=== PATIENT | male | born 1940 | race Hispanic/Latino ===

== ENCOUNTER → 2022-03-18 | Outpatient (CLI) | payer OTHER | END | disposition home or self-care (01) | LOC: RAH 09:47 | PROVIDERS: ATTEND Family Medicine | DX: M19.022 Primary osteoarthritis, left elbow (principal); M25.522 Pain in left elbow | CPT/HCPCS: 73080 ==

== ENCOUNTER 2025-01-19 17:56 | Observation (INO) | payer OTHER ==
[~2025-01-19] VITALS: Ht 172.7 cm; Wt 77.1 kg
[~2025-01-19 17:56] MED LIST: ATOR10TA69 PO; FOLI0.8T3 PO; FURO40TA5 PO; GABA300C PO; LOSA50TA64 PO; PRED20B PO; TAMS-55 PO
[2025-01-19] MEDS: FAMOTIDINE 20MG VIAL IV ONE (18:27)
[2025-01-19] MEDS: 0.9%NACL 1000ML 1,000 ML IV ONE (18:27)
[2025-01-19 18:44] LABS: IMMATURE GRANULOCYTE ABSOLUTE 0.04 K/uL (0-1); NUCLEATED RED BLOOD CELLS 0.0 % (0.0-0.19); PLATELET COUNT (AUTO) 179 K/uL (130-400); RED BLOOD CELL COUNT(AUTO) 4.61 MIL/uL (4.50-6.20); RED CELL DISTRIBUTION WIDTH 13.1 % (11.0-15.5); WHITE BLOOD COUNT (AUTO) 7.1 K/uL (4.8-10.8)
[2025-01-19 18:46] LABS: CREATININE 1.6 mg/dL (0.5-1.3); GLOMERULAR FILTR. RATE CALC 43.0 mL/min (>90); GLUCOSE,RANDOM 174.0 mg/dL (70-105); SODIUM SERUM 138.0 mmol/L (136-145); UREA NITROGEN, BLOOD 26.0 mg/dL (7-18)
[2025-01-19 18:51] LABS: CREATINE KINASE, TOTAL 321.0 U/L (21-232)
--- NOTE | 2025-01-19 19:57 | HMCIMG ---
EXAM: CR Chest, 1 View. CLINICAL HISTORY: sob/cough COMPARISON: None provided. FINDINGS: LUNGS: The lungs show no infiltrate or other acute finding. PLEURAL SPACES: No evidence of pleural effusion or pneumothorax. MEDIASTINUM: Cardiac size and mediastinal contours within normal limits. BONES: No acute osseous abnormality. IMPRESSION: No acute cardiopulmonary pathology is evident. /[place]
--- NOTE | 2025-01-19 20:19 | HP ---
[facility] HISTORY & PHYSICAL Date Patient Seen: Jan 19, 2025 Time of Visit: 2144 Supervising Physician: [Dr. Zay Hicks] Primary Care Physician: [Dr. April Anderson] Outpatient Specialists: [Dr. Contreras ] Inpatient Consults: [ ] PROBLEM LIST: Bee-sting injury-POA ANDRY -POA Elevated CK, mild-POA Respiratory distress, resolved-POA Suspected anaphylaxis reaction post-bee sting [id number] Mild hypokalemia-POA Elevated CK-POA Primary hypertension HLD Prior history of stroke History of unnamed rare kidney disease : Follows up with Dr. Contreras in the outpatient (per daughter's report) HX of glomerulonephritis HX of prior dialysis Plan -admit to PCCU -continue to monitor cardiopulmonary status to rule out anaphylaxis -monitor for shock event -continue IV methylprednisolone and Pepcid -aggressive IV fluids to maintain volume and minimize occurrence of shock -avoid nephrotoxic agents -supportive care -continue to monitor renal function and electrolytes, manage accordingly -multimodal pain management -Monitor CK HPI: [Patient is 84-year-old male with PMH significant for HTN, HLD, prior CVA and a rare kidney disease who was presented to the ED concerning respiratory distress secondary to bee sting injury. Patient is currently sleeping and weak due to the unfortunate event, he was unable to engage with the HPI process so the daughter at bedside gave residual history. 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 He was inside his tractor and was moving some logs when he did not notice the beehive that aggravated the bees that ended up attacking him. He started having swelling in his face, severe cough, having raspy voice and fear of closing his throat. He was immediately brought to [facility] [place] and was given stat epinephrine, methylprednisolone, Benadryl and famotidine. Patient recovered afterwards and was not complaining of any symptoms. At the time of my assessment, patient is resting comfortably, response to voice, denies pain or discomfort or dyspnea, and hemodynamically stable. His facial edema has significantly improved with mild redness. We will continue to monitor patient's condition and will admit the patient to PCCU for close monitoring. Goals of care were discussed with the patient's daughter verbalizes understanding and agreement. PAST MEDICAL HX: see above PAST SURGICAL HX: noncontributory SOCIAL HISTORY: No tobacco, ETOH, or illicit drug use Coded Allergies: No Known Drug Allergies (Unverified Allergy, Unknown, 04/16/22) REVIEW OF SYSTEMS: 12 point ROS reviewed with patient. Pertinent positives mentioned above. Otherwise negative. PHYSICAL EXAM: GENERAL: alert, weak, awake oriented x 3 HEENT: EOMI, Sclera non icteric, dry mucosa, facial redness with very minimal swelling NECK: Supple, no JVD, trachea midline LUNGS: Clear breath sounds bilaterally. No wheezes HEART: Regular rate and rhythm. Normal S1 and S2, without murmurs ABD: Abdomen soft, nontender. Bowel sounds present EXT: No clubbing cyanosis or edema NEURO: Alert and oriented to person, follows commands Vital Signs (last 8hr) Date Time Temp Pulse Resp B/P (MAP) Pulse Ox O2 Delivery O2 Flow Rate FiO2 01/19/25 19:18 99.0 92 24 140/74 97 Room Air* 0 21 01/19/25 19:00 99.0 87 26 129/73 95 Room Air* 0 21 01/19/25 17:58 98.2 110 20 110/66 99 Room Air 0 LABS: Hematology Labs: Test 01/19/25 18:22 Range/Units White Blood Count 7.1 4.8-10.8 K/uL Red Blood Count 4.61 4.50-6.20 MIL/uL Hemoglobin 15.1 14.0-18.0 g/dL Hematocrit 44.3 42-54 % Mean Corpuscular Volume 96.1 79-99 fL Mean Corpuscular Hemoglobin 32.8 27.0-33.0 pg Mean Corpuscular Hemoglobin Concent 34.1 32.0-36.0 g/dL Red Cell Distribution Width 13.1 11.0-15.5 % Platelet Count 179 130-400 K/uL Mean Platelet Volume 9.8 7.5-10.5 fL Immature Granulocyte % (Auto) 0.6 0-1 % Neutrophils (%) (Auto) 85.3 H 40.0-77.0 % Lymphocytes (%) (Auto) 10.2 L 21.0-51.0 % Monocytes (%) (Auto) 3.5 3.0-13.0 % Eosinophils (%) (Auto) 0.4 0.0-8.0 % Basophils (%) (Auto) 0.0 0.0-5.0 % Neutrophils # (Auto) 6.1 1.8-7.7 K/uL Lymphocytes # (Auto) 0.7 L 1.0-4.8 K/uL Monocytes # (Auto) 0.3 0.1-1.0 K/uL Eosinophils # (Auto) 0.03 0.00-0.70 K/uL Basophils # (Auto) 0.00 0.00-0.20 K/uL Absolute Immature Granulocyte (auto 0.04 0-1 K/uL Nucleated Red Blood Cells 0.0 0.0-0.19 % Chemistry Labs: Test 01/19/25 18:22 Range/Units Sodium Level 138 136-145 mmol/L Potassium Level 3.3 L 3.5-5.1 mmol/L Chloride Level 100 L 101-111 mmol/L Carbon Dioxide Level 26 21-32 mmol/L Blood Urea Nitrogen 26 H 7-18 mg/dL Creatinine 1.6 H 0.5-1.3 mg/dL Glomerular Filtration Rate Calc 43 >90 mL/min Random Glucose 174 H 70-105 mg/dL Total Calcium 9.3 8.5-10.1 mg/dL Total Creatine Kinase 321 H 21-232 U/L Troponin I High Sensitivity 8 4-75 ng/L DIAGNOSTICS / RADIOLOGY RESULTS: [ ] PLAN NEURO: Minimize central acting medications as possible. Maintain fall precautions, adequate lighting during the day PULMONARY: Supplemental 02 as needed. Maintain aspiration precautions at all times CARDIOVASCULAR: Follow hemodynamics. Vital signs per facility protocol GI & NUTRITION: Continue with nutritional support. Continue stool softeners and laxatives as needed. KIDNEYS & ELECTROLYTES: Strict monitoring of intake, output and overall fluid balance. Avoid nephrotoxic medications to the extent possible. Medications to be dosed according to renal function. Monitor electrolytes and replace as needed ENDOCRINE: Maintain blood glucose between 100-180 at all times. Hypoglycemia protocol in place INFECTIOUS DISEASE: Trend temperature, WBC and procalcitonin level Follow cultures, deescalate antibiotics as soon as possible. Panculture if new onset fever ONCOLOGY/HEMATOLOGY/COAGULATION: Monitor for s/s of bleeding Monitor hemoglobin, coagulation studies as needed SKIN: Pressure ulcer prevention per facility protocol Specialty mattress ORTHO/REHAB: Continue PT/OT Prophylaxis: Continue GI and DVT prophylaxis Code Status: Full Resuscitation Disposition: Home NATALEE BELTRE TRELL Jan 19, 2025 20:19
[2025-01-19] MEDS ORDERED: MAGNESIUM 2GM PREMIX 50ML 50 ML IV PRN (20:30)
[2025-01-19] MEDS ORDERED: PoTASSium chl 10% ELIXIR 20MEQ 20 MEQ/15 ML UDCUP PO PRN (20:30)
[2025-01-19] MEDS ORDERED: PoTASSium chloRIDE 20MEQ ER 20 MEQ ERTAB PO PRN (20:30)
[2025-01-19] MEDS ORDERED: ALBUTEROL 0.083% 2.5 MG/3 ML INH IH PRN (20:30)
[2025-01-19] MEDS ORDERED: LACTULOSE 20 GM/30 ML UDCUP PO PRN (20:30)
--- NOTE | 2025-01-19 20:42 | ERN ---
General Chief Complaint: Allergic Reaction Stated Complaint: MULTIPLE WASP STINGS Time Seen by MD: 17:59 Time Seen by Midlevel: 17:59 Source: patient History of Present Illness Initial Comments The patient is an 84-year-old male presenting to the emergency department for evaluation of multiple bee stings. The patient was stung by over 50 bees approximately hours prior to arrival. On arrival the patient is specifically denies any chest pain or shortness for breath Allergies: Coded Allergies: No Known Drug Allergies (Unverified Allergy, Unknown, 04/16/22) Home Meds Active Scripts Prednisone (Deltasone/Orasone [Bulk]) 20 Mg Tab, 20 MG PO TID, #90 TAB 3 Refills Prov:MICHELLE PADILLA MD 04/25/22 Reported Medications Furosemide (Furosemide) 40 Mg Tablet, 40 MG PO BID, TAB 04/16/22 Tamsulosin HCl (Flomax) 0.4 Mg Cap.er.24h, 0.4 MG PO DAILY, CAPSULE.DR 04/16/22 Gabapentin (Neurontin) 300 Mg Capsule, 300 MG PO BID, CAP 04/16/22 Atorvastatin Calcium (Atorvastatin Calcium) 10 Mg Tablet, 10 MG PO DAILY, TAB 04/16/22 Folic Acid (Folic Acid) 0.8 Mg Tablet, 1 MG PO DAILY, TAB 04/16/22 Losartan Potassium (Losartan Potassium) 50 Mg Tablet, 50 MG PO DAILY, TAB 04/16/22 Past Medical History Past Medical History: High Cholesterol, Heart Disease, Hypertension, Renal Disese Past Surgical History: Cholecystectomy, Other Social History Social History: Negative, Lives with family ROS Dictation CONSTITUTIONAL: Negative except for HPI HEAD/FACE: Negative except for HPI EENT: Negative except for HPI RESPIRATORY: Negative except for HPI GASTROINTESTINAL/ABDOMINAL: Negative except for HPI GENITOURINARY: Negative except for HPI MUSCULOSKELETAL: Negative except for HPI INTEGUMENTARY: Negative except for HPI NEUROLOGICAL/PSYCH: Negative except for HPI HEMATOLOGIC/LYMPHATIC: Negative except for HPI All Systems Negative, Except as noted above. 13 point review of systems assessed and all negative except for above. Physical Exam Physical Exam Dictation Vital Signs reviewed General Appearance: Alert, oriented x 3, no acute distress, well developed, nourished. Head and Face: non-traumatic. Eyes: PERRL, pink conjunctivas, eyelid no trauma, anterior chamber with arcus senilis. Ears: Pinnas intact and no signs of trauma or erythema ear canals clear and no discharge TM no erythema Nose: No discharge, no bleeding. Oropharynx: Mouth normal, tongue pink, pharynx clear,no erythema, tonsils no exudates, no abscesses noted, mucous membrane moist Neck: Supple, non-tender, no thyromegaly, no masses, no JVD, no bruits Breast:Deferred Chest:No tenderness, no crepitus, no paradoxical movement, no retractions Lungs:Clear, well-ventilated, symmetric, no rales, no wheezing, no rhonchi, no stridor, good breath sounds bilaterally Heart: Regular rate, regular rhythm, no murmur, no gallops Vascular: no peripheral edema, Abdomen: Soft, positive bowel sounds, nondistended, no guarding, nontender, no rebound, no masses no hepatomegaly, no splenomegaly, no Hussein's sign, no hernias. Rectal: Deferred Genital: Deferred Neurological: Normal speech, motor function intact, sensory function intact Musculoskeletal: Neck nontender, full range of motion, back nontender, full range of motion, Extremities: nontender, full range of motion Skin: Color pink, dry, no turgor, no rash, no lacerations, no abrasions, no contusions. Lymphatic: Deferred Results Laboratory and Microbiology Lab and Micro Result Laboratory Tests Test 01/19/25 18:22 White Blood Count 7.1 K/uL (4.8-10.8) Red Blood Count 4.61 MIL/uL (4.50-6.20) Hemoglobin 15.1 g/dL (14.0-18.0) Hematocrit 44.3 % (42-54) Mean Corpuscular Volume 96.1 fL (79-99) Mean Corpuscular Hemoglobin 32.8 pg (27.0-33.0) Mean Corpuscular Hemoglobin Concent 34.1 g/dL (32.0-36.0) Red Cell Distribution Width 13.1 % (11.0-15.5) Platelet Count 179 K/uL (130-400) Mean Platelet Volume 9.8 fL (7.5-10.5) Immature Granulocyte % (Auto) 0.6 % (0-1) Neutrophils (%) (Auto) 85.3 % (40.0-77.0) H Lymphocytes (%) (Auto) 10.2 % (21.0-51.0) L Monocytes (%) (Auto) 3.5 % (3.0-13.0) Eosinophils (%) (Auto) 0.4 % (0.0-8.0) Basophils (%) (Auto) 0.0 % (0.0-5.0) Neutrophils # (Auto) 6.1 K/uL (1.8-7.7) Lymphocytes # (Auto) 0.7 K/uL (1.0-4.8) L Monocytes # (Auto) 0.3 K/uL (0.1-1.0) Eosinophils # (Auto) 0.03 K/uL (0.00-0.70) Basophils # (Auto) 0.00 K/uL (0.00-0.20) Absolute Immature Granulocyte (auto 0.04 K/uL (0-1) Nucleated Red Blood Cells 0.0 % (0.0-0.19) Sodium Level 138 mmol/L (136-145) Potassium Level 3.3 mmol/L (3.5-5.1) L Chloride Level 100 mmol/L (101-111) L Carbon Dioxide Level 26 mmol/L (21-32) Blood Urea Nitrogen 26 mg/dL (7-18) H Creatinine 1.6 mg/dL (0.5-1.3) H Glomerular Filtration Rate Calc 43 mL/min (>90) Random Glucose 174 mg/dL (70-105) H Total Calcium 9.3 mg/dL (8.5-10.1) Total Creatine Kinase 321 U/L (21-232) H Troponin I High Sensitivity 8 ng/L (4-75) Labs Reviewed?: Yes MDM MDM: Differential diagnosis: Acute allergic reaction, anaphylaxis, acute coronary syndrome Rationale: Tests considered and ordered secondary to shared decision making include: Previous outside records reviewed: Old ER visits. Risk of complication and/or morbidity or mortality of patient management: None Medications-Per medication reconciliation Need for hospitalization: Patient does meet criteria for hospitalization. Need for emergency major/minor surgery: No There are no social concerns with this patient. Prescription drug management Prescriptions will include symptomatic care Patient's prior external medical records from other ER visits were reviewed by me as indicated. Prior testing and results from previous visits were reviewed. Prior tests were taken into account with medical decision making and resource utilization, independent historian/historians were used to obtain complete medical history. I independently interpreted the test that were performed, results were reviewed by me and considered findings on radiology if ordered. Medical management and examination interpretation discussions were had by me with other qualified healthcare professionals as indicated for the patient's care. ED Course Orders Procedure Category Date Status Time 12 Lead Ekg Tracing- EKG 01/19/25 Logged Technical 18:02 Cbc With Differential LAB 01/19/25 Complete 18:02 Basic Metabolic Panel LAB 01/19/25 Complete 18:02 Troponin I High LAB 01/19/25 Complete Sensitivity 18:02 Creatine Kinase, Total LAB 01/19/25 Complete 18:02 0.9%Nacl 1000ml (Ns PHA 01/19/25 Complete 1000ml) 18:30 Methylprednisolone PHA 01/19/25 Complete Succ 125mg (Solu-Medr 18:30 Diphenhydramine Hcl PHA 01/19/25 Complete (Benadryl Inj) 18:30 Famotidine 20mg Vial PHA 01/19/25 Complete (Pepcid 20mg Vial) 18:30 Epinephrine Pf 1mg PHA 01/19/25 Complete (1:1,000) (Adrenaline 19:24 Chest 1vw RAD 01/19/25 Resulted 19:28 Epinephrine Pf 1mg PHA 01/19/25 Complete (1:1,000) (Adrenaline 19:30 Vital Signs Every 4 CPOE 01/19/25 Transmitted Hours 20:11 Daily Weights CPOE 01/19/25 Transmitted 20:11 I&O Q Shift CPOE 01/19/25 Transmitted 20:11 Activity: Bed Rest CPOE 01/19/25 Transmitted 20:11 Heart Healthy Diet DIET 01/20/25 Transmitted Breakfast O2 Order RT 01/19/25 Transmitted 20:11 Albuterol 0.083% PHA 01/19/25 In Process 2.5mg/3ml (Proventil 20:30 Cbc With Differential LAB 01/20/25 Verified 04:00 Basic Metabolic Panel LAB 01/20/25 Verified 04:00 Magnesium LAB 01/20/25 Verified 04:00 Phosphorus LAB 01/20/25 Verified 04:00 Cardiac Panel LAB 01/19/25 Logged 22:00 Cardiac Panel LAB 01/20/25 Verified 04:00 Cardiac Panel LAB 01/20/25 Verified 10:00 Thyroid Stimulating LAB 01/20/25 Verified Hormone 04:00 Lipid Panel LAB 01/20/25 Verified 04:00 Lactated Ringers PHA 01/19/25 In Process 1000ml (Lactated 20:30 Polyethylene Glycol PHA 01/20/25 In Process 3350 (Miralax 3350 1 09:00 Pantoprazole 40mg Tab PHA 01/20/25 In Process (Protonix 40mg Tab 09:00 Acetaminophen 325 Tab PHA 01/19/25 In Process (Tylenol 325mg Tab 20:30 Lactulose 20 Gm/30 Ml PHA 01/19/25 In Process Udcup (Constulose 20:30 Ondansetron 4mg Inj PHA 01/19/25 In Process (Zofran 4mg Inj) 20:30 Clonidine Hcl 0.1 Mg PHA 01/19/25 In Process Tablet (Catapres 0. 20:30 Hydralazine 20mg Inj PHA 01/19/25 Complete (Apresoline 20mg In 20:30 Labetalol 20mg Syg PHA 01/19/25 In Process (Trandate 20mg Syg) 20:30 Apply Scds CPOE 01/19/25 Transmitted 20:11 Turn Patient Q2hrs CPOE 01/19/25 Transmitted 20:11 Elevate Hob At 30 CPOE 01/19/25 Transmitted Degrees 20:11 Admit Orders ADM 01/19/25 Transmitted 20:11 Condition: CPOE 01/19/25 Transmitted 20:11 Telemetry Monitoring CPOE 01/19/25 Transmitted 20:11 Initiate JESSICA 01/19/25 In Process Hyperglycemia Protoco 20:11 Insulin Regular, PHA 01/19/25 In Process Human 3ml (Humulin R 21:00 Magnesium 2gm Premix PHA 01/19/25 In Process 50ml (Magnesium 2gm 20:30 Potassium Chl 10% PHA 01/19/25 In Process Elixir 20meq (Kcl 10% 20:30 Potassium Chloride PHA 01/19/25 In Process 20meq Er (K-Dur/Klor- 20:30 Notify Physician If CPOE 01/19/25 Transmitted There Is 20:11 Notify Md On The Next CPOE 01/19/25 Transmitted 20:11 Notify Md On The CPOE 01/19/25 Transmitted Next(Cont.) 20:11 Magnesium LAB 01/19/25 In Process 20:11 Famotidine 20mg Vial PHA 01/20/25 Complete (Pepcid 20mg Vial) 06:00 Methylprednisolone PHA 01/20/25 In Process Succ 40mg (Solu-Medro 06:00 Epinephrine Pf 1mg PHA 01/19/25 Logged (1:1,000) (Adrenaline 21:00 Current Medications Medications (Trade) Dose Ordered Sig/Jignesh Route PRN Reason Start Time Stop Time Status Last Admin Dose Admin Acetaminophen (TYLenol 325MG TAB) 650 mg Q6H PRN PO FEVER/MILD PAIN LEVEL 1-3 01/19/25 20:30 02/18/25 20:29 Albuterol Sulfate (Proventil 0.083% 2.5mg/3ml) 2.5 mg [id number] PRN IH SHORTNESS OF BREATH 01/19/25 20:30 02/18/25 20:29 Clonidine HCl (CATApres 0.1 mg TAB) 0.1 mg Q6H PRN PO IF SBP GREATER THAN 160 01/19/25 20:30 02/18/25 20:29 Diphenhydramine HCl (BENAdryl INJ) 25 mg ONCE ONCE IV 01/19/25 18:30 01/19/25 18:31 DC 01/19/25 18:27 Epinephrine HCl (ADRENaline PF 1MG AMP) 0.3 mg ONCE ONCE IM 01/19/25 19:30 01/19/25 19:31 DC 01/19/25 19:32 Epinephrine HCl (ADRENaline PF 1MG AMP) 0.3 mg ONCE ONCE IM 01/19/25 21:00 01/19/25 21:01 UNV Epinephrine HCl (ADRENaline PF 1MG AMP) 1 mg STK-MED ONCE .ROUTE 01/19/25 19:24 01/19/25 19:25 DC Famotidine (Pepcid 20mg Vial) 20 mg BID IV 01/20/25 06:00 01/19/25 20:25 DC Famotidine (Pepcid 20mg Vial) 20 mg ONCE ONCE IV 01/19/25 18:30 01/19/25 18:31 DC 01/19/25 18:27 Hydralazine HCl (APRESOLine 20MG INJ) 10 mg Q6H PRN IV SBP GREATER THAN 180 01/19/25 20:30 01/19/25 20:26 DC Insulin Human Regular (humuLIN R 100 UNIT/ML 3ML) INSULIN SLIDING SCAL... ACHS SQ 01/19/25 21:00 02/18/25 20:59 Labetalol HCl (TRANdate 20MG SYG) 10 mg Q2H PRN IV SBP GREATER THAN 180 01/19/25 20:30 02/18/25 20:29 Lactated Ringer's 1,000 ml @ 125 mls/hr Q8H IV 01/19/25 20:30 02/18/25 20:29 Lactulose (Constulose 20gm/ 30ml Udcup) 20 gm Q6H PRN PO CONSTIPATION 01/19/25 20:30 02/18/25 20:29 Magnesium Sulfate 50 ml @ 0 mls/hr PROTOCOL PRN IV MAGNESIUM PROTOCOL 01/19/25 20:30 02/18/25 20:29 Methylprednisolone Sodium Succinate (Solu-medROL 40MG) 40 mg BID IVP 01/20/25 06:00 02/19/25 05:59 Methylprednisolone Sodium Succinate (Solu-medROL 125MG) 125 mg ONCE ONCE IVP 01/19/25 18:30 01/19/25 18:31 DC 01/19/25 18:27 Ondansetron HCl (zoFRAN 4MG INJ) 4 mg Q6H PRN IVP NAUSEA/VOMITING 01/19/25 20:30 02/18/25 20:29 Pantoprazole Sodium (PROTonix 40MG TAB) 40 mg DAILY PO 01/20/25 09:00 02/19/25 08:59 Polyethylene Glycol (MIRalax 3350 17 GM POWD.PACK) 17 gm DAILY PO 01/20/25 09:00 02/19/25 08:59 Potassium Chloride (K-Dur/Klor-Con 20meq) 20 meq AD PRN PO POTASSIUM PROTOCOL 01/19/25 20:30 02/18/25 20:29 Potassium Chloride (KCl 10% Elixir 20meq/15ml) 20 meq AD PRN PO POTASSIUM PROTOCOL 01/19/25 20:30 02/18/25 20:29 Sodium Chloride 1,000 ml @ 0 mls/hr ONCE ONCE IV 01/19/25 18:30 01/19/25 18:31 DC 01/19/25 18:27 Vital Signs Date Time Temp Pulse Resp B/P (MAP) Pulse Ox O2 Delivery O2 Flow Rate FiO2 01/19/25 19:18 99.0 92 24 140/74 97 Room Air* 0 21 01/19/25 19:00 99.0 87 26 129/73 95 Room Air* 0 21 01/19/25 17:58 98.2 110 20 110/66 99 Room Air 0 DX & DISP Disposition: Inpatient Departure Impression: Primary Impression: Bee sting Additional Impression: Acute allergic reaction Condition: Stable Referrals: GIL ROMERO MD (PCP) Time of Disposition: 20:41 I have reviewed the case, and I agree with, Diagnosis and Plan I performed the substantive portion of the visit. I have reviewed and personally made and approve the management plan that is documented in the note by myself or the JASEN. I acknowledge for responsibility for the patient's management plan. ADALID CASIANO Jan 19, 2025 20:42
[2025-01-19 21:24] VITALS: PULSE 87; RESP 18; O2SAT 96
[2025-01-19 22:12] LABS: CREATINE KINASE, TOTAL 425.0 U/L (21-232)
[2025-01-19] MEDS: LACTATED RINGERS 1000ML 1,000 ML IV SCH (23:10)
[2025-01-20 00:34] VITALS: PULSE 60; RESP 18; O2SAT 95
[2025-01-20] MEDS ORDERED: FAMOTIDINE 20MG VIAL IV SCH (06:00)
[2025-01-20] MEDS: Solu-medROL 40MG VIAL IVP SCH (06:30)
[2025-01-20 06:38] LABS: IMMATURE GRANULOCYTE ABSOLUTE 0.04 K/uL (0-1); NUCLEATED RED BLOOD CELLS 0.0 % (0.0-0.19); PLATELET COUNT (AUTO) 151 K/uL (130-400); RED BLOOD CELL COUNT(AUTO) 4.25 MIL/uL (4.50-6.20); RED CELL DISTRIBUTION WIDTH 13.2 % (11.0-15.5); WHITE BLOOD COUNT (AUTO) 8.1 K/uL (4.8-10.8)
[2025-01-20 06:47] VITALS: PULSE 51; RESP 18; O2SAT 95
[2025-01-20 07:13] LABS: CREATINE KINASE, TOTAL 203.0 U/L (21-232); CREATININE 1.7 mg/dL (0.5-1.3); GLOMERULAR FILTR. RATE CALC 40.0 mL/min (>90); GLUCOSE,RANDOM 158.0 mg/dL (70-105); LDL DIRECT 50.0 mg/dL (0-99); PHOSPHORUS 3.7 mg/dL (2.5-4.9); SODIUM SERUM 139.0 mmol/L (136-145); UREA NITROGEN, BLOOD 28.0 mg/dL (7-18)
--- NOTE | 2025-01-20 07:27 | EKG ---
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
[2025-01-20] MEDS ORDERED: PANT40TA PO (07:40)
[2025-01-20] MEDS ORDERED: METH4TAB15 PO (07:42)
[2025-01-20] MEDS ORDERED: FAMO20TA8 PO (07:43)
[2025-01-20] MEDS ORDERED: PANT40TA54 PO (08:35)
[2025-01-20] MEDS ORDERED: PRED1TAB PO (08:36)
--- NOTE | 2025-01-20 10:30 | NUR ---
RECEIVED REPORT FROM ER
[2025-01-20] MEDS: GABAPENTIN 300 MG CAPSULE PO SCH (10:32)
[2025-01-20 10:42] LABS: CREATINE KINASE, TOTAL 240.0 U/L (21-232)
--- NOTE | 2025-01-20 10:46 | NUR ---
CALL TO GIVE REPORT TO BAR 4 TIMES, NO ANSWER CALLED NURSES STATION IN POD C NO ANSWER.
--- NOTE | 2025-01-20 11:03 | NUR ---
RECEIVED IN ROOM 320. A&O x4. IN NO DISTRESS. ASSISTED TO REST ROOM. INDEPENDENTLY AMBULATORY
[2025-01-20 11:15] VITALS: BP 130/67; PULSE 55; RESP 18; TEMP 97.6; O2SAT 99
[2025-01-20] MEDS ORDERED: TAMS-55 PO (13:03)
[2025-01-20 16:00] VITALS: BP 110/58; PULSE 68; RESP 18; TEMP 97.8
[2025-01-20] MEDS ORDERED: CETI10TA87 PO (17:14)
--- NOTE | 2025-01-20 17:16 | PN ---
[facility] PROGRESS NOTE Date Patient Seen: Jan 20, 2025 Time of Visit: 17:10 Supervising Physician: Zay Hicks MD Primary Care Physician: [Dr. April Anderson] Outpatient Specialists: [Dr. Contreras ] Inpatient Consults: [ ] PROBLEM LIST: Bee-sting injury-POA ANDRY -POA Elevated CK, mild-POA Respiratory distress, resolved-POA Suspected anaphylaxis reaction post-bee sting [id number] Mild hypokalemia-POA Elevated CK-POA Primary hypertension HLD Prior history of stroke History of unnamed rare kidney disease : Follows up with Dr. Contreras in the outpatient (per daughter's report) HX of glomerulonephritis HX of prior dialysis Plan -admit to PCCU -continue to monitor cardiopulmonary status to rule out anaphylaxis -monitor for shock event -continue IV methylprednisolone and Pepcid -aggressive IV fluids to maintain volume and minimize occurrence of shock -avoid nephrotoxic agents -supportive care -continue to monitor renal function and electrolytes, manage accordingly -multimodal pain management -Monitor CK INTERVAL HISTORY: Chart reviewed including all laboratory and imaging results. Patient assessed at bedside. Patient denies any shortness of breaths, stridor, or palpitations. He appears to continue with mild lip swelling. He remains Hemodynamically stable. No major overnight events reported. Plan: Downgrade to medical floor Continue Solu-Medrol Continue famotidine 20 mg IV b.i.d. cetrizine 10 mg q.h.s. Peptic ulcer and DVT prophylaxis Plan for DC tomorrow REVIEW OF SYSTEMS: 12 point ROS reviewed with patient. Pertinent positives mentioned above. Otherwise negative. PHYSICAL EXAM: GENERAL: alert, weak, awake oriented x 3 HEENT: EOMI, Sclera non icteric, dry mucosa, facial redness with very minimal swelling NECK: Supple, no JVD, trachea midline LUNGS: Clear breath sounds bilaterally. No wheezes HEART: Regular rate and rhythm. Normal S1 and S2, without murmurs ABD: Abdomen soft, nontender. Bowel sounds present EXT: No clubbing cyanosis or edema NEURO: Alert and oriented to person, follows commands Vital Signs (last 8hr) Date Time Temp Pulse Resp B/P (MAP) Pulse Ox O2 Delivery O2 Flow Rate FiO2 01/20/25 16:00 97.9 68 18 110/58 98 Room Air 01/20/25 11:15 99 Room Air* 0 21 01/20/25 11:15 97.5 55 18 130/67 97 Room Air 01/20/25 10:25 98.4 53 15 125/65 96 Room Air* 0 21 LABS: Hematology Labs: Test 01/20/25 06:20 Range/Units White Blood Count 8.1 4.8-10.8 K/uL Red Blood Count 4.25 L 4.50-6.20 MIL/uL Hemoglobin 14.0 14.0-18.0 g/dL Hematocrit 41.0 L 42-54 % Mean Corpuscular Volume 96.5 79-99 fL Mean Corpuscular Hemoglobin 32.9 27.0-33.0 pg Mean Corpuscular Hemoglobin Concent 34.1 32.0-36.0 g/dL Red Cell Distribution Width 13.2 11.0-15.5 % Platelet Count 151 130-400 K/uL Mean Platelet Volume 9.7 7.5-10.5 fL Immature Granulocyte % (Auto) 0.5 0-1 % Neutrophils (%) (Auto) 91.0 H 40.0-77.0 % Lymphocytes (%) (Auto) 7.4 L 21.0-51.0 % Monocytes (%) (Auto) 1.0 L 3.0-13.0 % Eosinophils (%) (Auto) 0.0 0.0-8.0 % Basophils (%) (Auto) 0.1 0.0-5.0 % Neutrophils # (Auto) 7.4 1.8-7.7 K/uL Lymphocytes # (Auto) 0.6 L 1.0-4.8 K/uL Monocytes # (Auto) 0.1 0.1-1.0 K/uL Eosinophils # (Auto) 0.00 0.00-0.70 K/uL Basophils # (Auto) 0.01 0.00-0.20 K/uL Absolute Immature Granulocyte (auto 0.04 0-1 K/uL Nucleated Red Blood Cells 0.0 0.0-0.19 % White Cell Morphology Comment See comments Chemistry Labs: Test 01/20/25 10:07 01/20/25 08:22 01/20/25 06:20 Range/Units Total Creatine Kinase 240 H 21-232 U/L Troponin I High Sensitivity 6.2 4-75 ng/L Whole Blood Glucose 147 H 70-110 MG/DL Sodium Level 139 136-145 mmol/L Potassium Level 4.7 3.5-5.1 mmol/L Chloride Level 104 101-111 mmol/L Carbon Dioxide Level 30 21-32 mmol/L Blood Urea Nitrogen 28 H 7-18 mg/dL Creatinine 1.7 H 0.5-1.3 mg/dL Glomerular Filtration Rate Calc 40 >90 mL/min Random Glucose 158 H 70-105 mg/dL Total Calcium 8.7 8.5-10.1 mg/dL Phosphorus Level 3.7 2.5-4.9 mg/dL Magnesium Level 2.10 1.80-2.40 mg/dL Triglycerides Level 21 L 30-200 mg/dL Cholesterol Level 101 # <200 mg/dL LDL Cholesterol 50 0-99 mg/dL HDL Cholesterol 46 29-71 mg/dL Thyroid Stimulating Hormone (TSH) 0.40 # 0.36-3.74 uIU/mL DIAGNOSTICS / RADIOLOGY RESULTS: [[place] [address] [place] [id number] IMAGING REPORT Signed PATIENT: BRII LEMON MR#: [id number] : 1940 SEX: M AGE: 84 LOCATION: [facility] ORDER 27 STATUS: [facility] REPORT#: [id number] SERVICE 27 REASON: sob/cough ORDERING PHYSICIAN: ADALID CASIANO PROCEDURE: CXR1VW - CHEST 1VW EXAM: CR Chest, 1 View. CLINICAL HISTORY: sob/cough COMPARISON: None provided. FINDINGS: LUNGS: The lungs show no infiltrate or other acute finding. PLEURAL SPACES: No evidence of pleural effusion or pneumothorax. MEDIASTINUM: Cardiac size and mediastinal contours within normal limits. BONES: No acute osseous abnormality. IMPRESSION: No acute cardiopulmonary pathology is evident. /[place] DICTATED BY: BRADFORD RIVERA MD DATE: 01/19/252056 ELECTRONICALLY SIGNED BY: BRADFORD RIVERA MD DATE: 01/19/252056 ] PLAN NEURO: Minimize central acting medications as possible. Maintain fall precautions, adequate lighting during the day PULMONARY: Supplemental 02 as needed. Maintain aspiration precautions at all times CARDIOVASCULAR: Follow hemodynamics. Vital signs per facility protocol GI & NUTRITION: Continue with nutritional support. Continue stool softeners and laxatives as needed. KIDNEYS & ELECTROLYTES: Strict monitoring of intake, output and overall fluid balance. Avoid nephrotoxic medications to the extent possible. Medications to be dosed according to renal function. Monitor electrolytes and replace as needed ENDOCRINE: Maintain blood glucose between 100-180 at all times. Hypoglycemia protocol in place INFECTIOUS DISEASE: Trend temperature, WBC and procalcitonin level Follow cultures, deescalate antibiotics as soon as possible. Panculture if new onset fever ONCOLOGY/HEMATOLOGY/COAGULATION: Monitor for s/s of bleeding Monitor hemoglobin, coagulation studies as needed SKIN: Pressure ulcer prevention per facility protocol Specialty mattress ORTHO/REHAB: Continue PT/OT Prophylaxis: Continue GI and DVT prophylaxis Code Status: Full Resuscitation Disposition: Home ATTESTATION BY PHYSICIAN The patient has been seen and evaluated, the case has been discussed with the FORM BUILDER, I agree with the clinical findings and plan of care. Zay Hicks MD, [facility] Jan 20, 2025 17:16
[2025-01-20 19:26] VITALS: PULSE 60; RESP 18; O2SAT 95
[2025-01-20 20:00] VITALS: BP 123/65; PULSE 52; RESP 20; TEMP 98.5; O2SAT 96
--- NOTE | 2025-01-20 20:00 | NUR ---
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 ANTICIPATING DISCHARGE IN AM. Addendum: 01/21/25 at 1019 by FRANK BEAR RN Amended: Links added.
[2025-01-20] MEDS: ENOXAPARIN SODIUM 40 MG/0.4 ML SYRINGE SQ SCH (20:34)
[2025-01-21] VITALS: BP 124/67; PULSE 44; RESP 20; TEMP 97.7
[2025-01-21 04:00] VITALS: BP_SYST 116; BP_SYST 120; BP_DIAS 71; BP_DIAS 76; PULSE 37; RESP 20; TEMP 98.2
[2025-01-21 05:55] LABS: IMMATURE GRANULOCYTE ABSOLUTE 0.07 K/uL (0-1); NUCLEATED RED BLOOD CELLS 0.0 % (0.0-0.19); PLATELET COUNT (AUTO) 125 K/uL (130-400); RED BLOOD CELL COUNT(AUTO) 3.69 MIL/uL (4.50-6.20); RED CELL DISTRIBUTION WIDTH 13.6 % (11.0-15.5); WHITE BLOOD COUNT (AUTO) 8.9 K/uL (4.8-10.8)
[2025-01-21 06:09] LABS: CREATININE 1.6 mg/dL (0.5-1.3); GLOMERULAR FILTR. RATE CALC 43.0 mL/min (>90); GLUCOSE,RANDOM 158.0 mg/dL (70-105); SODIUM SERUM 138.0 mmol/L (136-145); UREA NITROGEN, BLOOD 38.0 mg/dL (7-18)
[2025-01-21 07:21] VITALS: O2SAT 94
[2025-01-21 07:49] VITALS: PULSE 60; RESP 18; O2SAT 96
[2025-01-21 08:00] VITALS: BP 133/66; PULSE 41; RESP 16; TEMP 97.6
[2025-01-21] MEDS: FAMOTIDINE 20MG VIAL IV SCH (09:15)
[2025-01-21 12:00] VITALS: BP 127/65; PULSE 39; RESP 16; TEMP 97.7
--- NOTE | 2025-01-21 13:45 | NUR ---
D/C INSTRUCTIONS GIVEN AND ACKNOWLEDGED BY PATIENT AND DAUGHTER. IV REMOVED
--- NOTE | 2025-01-21 19:42 | DS ---
[facility] DISCHARGE SUMMARY Date Patient Seen: Jan 21, 2025 Time of Visit: 1303 Supervising Physician: Dr. Hicks Primary Care Physician: [Dr. April Anderson] Outpatient Specialists: [Dr. Contreras ] Inpatient Consults: [ ] PROBLEM LIST: Bee-sting injury-POA , resolved ANDRY -POA, resolved Elevated CK, mild-POA, resolved Respiratory distress, resolved-POA Suspected anaphylaxis reaction post-bee sting [id number] Mild hypokalemia-POA, resolved Elevated CK-POA, resolved Primary hypertension HLD Prior history of stroke History of unnamed rare kidney disease : Follows up with Dr. Contreras in the outpatient (per daughter's report) HX of glomerulonephritis HX of prior dialysis HOSPITAL COURSE: HPI (per admitting provider)[Patient is 84-year-old male with PMH significant for HTN, HLD, prior CVA and a rare kidney disease who was presented to the ED concerning respiratory distress secondary to bee sting injury. Patient is currently sleeping and weak due to the unfortunate event, he was unable to engage with the HPI process so the daughter at bedside gave residual history. 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 He was inside his tractor and was moving some logs when he did not notice the beehive that aggravated the bees that ended up attacking him. He started having swelling in his face, severe cough, having raspy voice and fear of closing his throat. He was immediately brought to [facility] and was given stat epinephrine, methylprednisolone, Benadryl and famotidine. Patient recovered afterwards and was not complaining of any symptoms. At the time of my assessment, patient is resting comfortably, response to voice, denies pain or discomfort or dyspnea, and hemodynamically stable. His facial edema has significantly improved with mild redness. We will continue to monitor patient's condition and will admit the patient to PCCU for close monitoring. Goals of care were discussed with the patient's daughter verbalizes understanding and agreement. Patient was seen and examined by bedside with family present. Patient is awake alert able to answer simple questions appropriately. Patient denies any chest pain or shortness of breadth. Denies any nausea vomiting or abdominal pain. States is feeling much better. Instructed patient will be getting discharged today and will need to follow up with PCP within 3-5 days upon discharge. 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 PCP notified of patients admission, hospital course and discharge. New Medications: Cetirizine HCl (Cetirizine HCl) 10 Mg Tab.chew 1 TAB PO HS for allergy symptoms for 30 Days, #30 TAB 0 Refills Famotidine (Famotidine) 20 Mg Tablet 20 MG PO BID, #60 TAB Methylprednisolone (Methylprednisolone) 4 Mg Tab.ds.pk 0 PO AD, #21 TAB 0 Refills take 6 Pills Day 1, 5 Pills Day 2, 4 Pills Day 3, 3 Pills Day 4, 2 Pills Day 5 and 1 pill Day 6 Pantoprazole Sodium (Protonix) 40 Mg Tablet.dr 40 MG PO DAILY, #15 TAB 0 Refills Continued Medications: Atorvastatin Calcium (Atorvastatin Calcium) 10 Mg Tablet 10 MG PO DAILY, TAB Folic Acid (Folic Acid) 0.8 Mg Tablet 1 MG PO DAILY, TAB Furosemide (Furosemide) 40 Mg Tablet 40 MG PO BID, TAB Gabapentin (Neurontin) 300 Mg Capsule 300 MG PO BID, CAP Losartan Potassium (Losartan Potassium) 50 Mg Tablet 100 MG PO DAILY, TAB Pantoprazole Sodium (Pantoprazole Sodium) 40 Mg Tablet.dr 40 MG PO DAILY, TAB Prednisone (Prednisone) 1 Mg Tablet 1 MG PO DAILY, TAB Tamsulosin HCl (Flomax) 0.4 Mg Cap.er.24h 1 CAP PO BID for 30 Days, #30 CAP 0 Refills PHYSICAL EXAM: GENERAL: alert, weak, awake oriented x 3 HEENT: EOMI, Sclera non icteric, dry mucosa, facial redness with very minimal swelling NECK: Supple, no JVD, trachea midline LUNGS: Clear breath sounds bilaterally. No wheezes HEART: Regular rate and rhythm. Normal S1 and S2, without murmurs ABD: Abdomen soft, nontender. Bowel sounds present EXT: No clubbing cyanosis or edema NEURO: Alert and oriented to person, follows commands FOLLOW-UP: Follow-up with PCP in 2-3 days RECOMMENDATIONS: See Discharge Instructions This case was seen and discussed with my supervising physician. 35 minutes spent on discharge process, including evaluation of the patient, discussion with nursing staff, medication reconciliation and follow-up appointments JULIAN TREVINO TIRE MAN Jan 21, 2025 19:42
== END 2025-01-21 14:00 | disposition home or self-care (01) ==
LOC: EDH 17:56 → EDHIP 20:11 → 3CH 01-20 11:30
PROVIDERS: ADMIT Internal Medicine; ATTEND Internal Medicine
DX: T63.441A Toxic effect of venom of bees, accidental (unintentional), initial encounter (principal); E75.6 Lipid storage disorder, unspecified; N17.9 Acute kidney failure, unspecified; R57.9 Shock, unspecified; I10 Essential (primary) hypertension; E78.00 Pure hypercholesterolemia, unspecified; E87.6 Hypokalemia; R06.03 Acute respiratory distress; R53.1 Weakness; R74.8 Abnormal levels of other serum enzymes; R60.0 Localized edema; Z86.73 Personal history of transient ischemic attack (TIA), and cerebral infarction without residual deficits; Z87.448 Personal history of other diseases of urinary system; Z79.899 Other long term (current) drug therapy; Z98.890 Other specified postprocedural states; Y92.89 Other specified places as the place of occurrence of the external cause
CPT/HCPCS: 96372 ×2; 96374; 96375; 99285; 82550 ×4; 83735 ×2; 84484 ×4; 80048 ×3; 85025 ×3; 36415 ×3; 71045; 93005; 96376; 96361; 84443; 84100; 80061; 82948; J1200; J3490 ×2; J2919 ×5; J0169 ×2; G0378 ×29; J1650